=== PATIENT | female | born 1945 | race Hispanic/Latino ===

== ENCOUNTER 2018-10-18 15:00 | Inpatient (IN) | payer OTHER ==
[~2018-10-18] VITALS: Ht 157.5 cm; Wt 75.0 kg
[~2018-10-18 15:00] MED LIST: LOSA1TAB42 PO; PREM125 PO
[2018-10-18] MEDS ORDERED: SOLI10TA PO (16:09)
[2018-10-18 16:21] LABS: BASOPHILS % (AUTO) 0.5 % (0.0-5.0); EOSINOPHILS % (AUTO) 0.6 % (0.0-8.0); HEMATOCRIT 38.8 % (36-48); LYMPHOCYTES % (AUTO) 27.1 % (21.0-51.0); MEAN CORPUSCULAR HEMOGLOBIN 32.2 pg (27.0-33.0); MEAN CORPUSCULAR VOLUME 94.6 fL (79-99); MONOCYTES % (AUTO) 8.2 % (3.0-13.0); NEUTROPHILS % (AUTO) 63.6 % (40.0-77.0); NUCLEATED RED BLOOD CELLS 0.1 % (0.0-0.19); PLATELET COUNT (AUTO) 247 K/uL (130-400); RED CELL DISTRIBUTION WIDTH 13.4 % (11.0-15.5); WHITE BLOOD COUNT (AUTO) 7.8 K/uL (4.8-10.8)
[2018-10-18 16:33] LABS: CREATININE 0.9 mg/dL (0.5-1.5); POTASSIUM 4.1 mmol/L (3.5-5.1)
[2018-10-18 16:34] LABS: INR 0.95 (0.85-1.15)
[2018-10-18 16:39] LABS: APPEARANCE,URINE Clear (CLEAR); BILIRUBIN,URINE Negative (NEGATIVE); COLOR,URINE Yellow (YELLOW); GLUCOSE, URINE (UA) Negative (NEGATIVE); KETONES,URINE Negative (NEGATIVE); LEUKOCYTE ESTERASE ,URINE Negative (NEGATIVE); NITRATE,URINE Negative (NEGATIVE); OCCULT BLOOD,URINE Negative (NEGATIVE); PROTEIN,URINE Negative (NEGATIVE)
[2018-10-19] VITALS (24 sets, daily range): BP systolic 91–155; BP diastolic 48–96
[2018-10-19] MEDS ORDERED: CEFAZOLIN SODIUM 1 GM VIAL ONE (07:37)
[2018-10-19] MEDS ORDERED: CEFAZOLIN SODIUM 1 GM VIAL IVP ONE (08:00)
[2018-10-19] MEDS ORDERED: LACTATED RINGERS 1000ML 1,000 ML IV ONE (08:00)
--- NOTE | 2018-10-19 08:10 | NUR ---
POTENTIAL FOR INFECTION: NO SHAVING NEEDED TO RIGHT SHOULDER / ARM ASSESSED PER PEGGY SCHAFER. WIPED RIGHT SHOULDER / UPPER ARM WITH TRICIA: 2% CHLORHEXIDINE GLUCONATE CLOTH PATIENTS PRE-OP SKIN PREP PER PEGGY SCHAFER.
[2018-10-19] MEDS ORDERED: PROPOFOL 10 MG/ML 20ML VIAL IV ONE (08:28)
[2018-10-19] MEDS ORDERED: MIDAZOLAM HCL 1 MG/ML 2ML VIAL ONE (08:28)
[2018-10-19] MEDS ORDERED: FENTANYL CITRATE PF 50 MCG/1 ML 5ML AMP IV ONE (08:29)
[2018-10-19] MEDS ORDERED: ROCURONIUM 10MG/1ML SYR 10 MG/ML ML ONE (08:31)
[2018-10-19] MEDS ORDERED: ROPIVACAINE 0.5% 5MG/ML 30ML IJ ONE (08:34)
[2018-10-19] MEDS ORDERED: TRANEXAMIC ACID 1000MG/10ML IV ONE ×2 (08:36→12:13)
[2018-10-19] MEDS ORDERED: EPHEDRINE SULFATE 50 MG/ML AMPULE ONE (08:38)
[2018-10-19] MEDS ORDERED: LIDOCAINE HCL-MPF 1% 5ML AMP IJ ONE (09:39)
[2018-10-19] MEDS ORDERED: KETOROLAC TROMETHAMINE 30MG/ML ONE (09:39)
[2018-10-19] MEDS ORDERED: DEXAMETHASONE SOD PHOSPHATE 10MG/ML 1ML VIAL ONE (09:40)
[2018-10-19] MEDS ORDERED: ONDANSETRON HCL 4 MG/2 ML VIAL ONE (09:40)
[2018-10-19] MEDS ORDERED: GLYCOPYRROLATE 1 MG/5 ML SYRINGE ONE (11:29)
[2018-10-19] MEDS ORDERED: NEOSTIGMINE 5MG/5ML SYR IV ONE (11:29)
[2018-10-19] MEDS ORDERED: FENTANYL CITRATE PF 50 MCG/1 ML 2ML VIAL ONE (11:29)
[2018-10-19] MEDS ORDERED: LIDOCAINE HCL-MPF 1% 2ML VIAL IV PRN (12:00)
[2018-10-19] MEDS ORDERED: KETOROLAC TROMETHAMINE 15MG/ML IV PRN (12:00)
[2018-10-19] MEDS ORDERED: CALCIUM CARBONATE 500 MG TABLET PO PRN (12:00)
[2018-10-19] MEDS ORDERED: POTASSIUM CHLORIDE 20 MEQ ERTAB PO PRN (12:00)
[2018-10-19] MEDS ORDERED: OXYCODONE HCL 5 MG TAB PO PRN (12:00)
[2018-10-19] MEDS ORDERED: TEMAZEPAM 15 MG CAPSULE PO PRN (12:00)
[2018-10-19] MEDS ORDERED: POTASSIUM CHLORIDE 10% ELIXIR 20 MEQ/15 ML UDCUP PO PRN (12:00)
[2018-10-19] MEDS ORDERED: FE FUMARATE/FA/MV, MIN COMB#15 1 TAB PO PRN (12:00)
[2018-10-19] MEDS ORDERED: POTASSIUM CHLORIDE 20MEQ/100ML 100 ML IV PRN (12:00)
[2018-10-19] MEDS ORDERED: DiphenhydrAMINE HCL 50 MG/ML VIAL IVP PRN (12:00)
[2018-10-19] MEDS ORDERED: ONDANSETRON HCL 4 MG/2 ML VIAL IVP PRN (12:00)
[2018-10-19] MEDS: ACETAMINOPHEN EXTRA STRENGTH 500 MG TABLET PO SCH ×2 (12:00→19:59)
[2018-10-19] MEDS ORDERED: TRAMADOL HCL 50 MG TABLET PO PRN (12:00)
[2018-10-19] MEDS: SODIUM CHLORIDE 0.9% 1000ML 1,000 ML IV SCH ×2 (13:15→20:07)
[2018-10-19] MEDS: CEFAZOLIN SODIUM 1 GM VIAL IVP SCH (17:00)
--- NOTE | 2018-10-19 17:00 | NUR ---
CARI MET W PATIENT S/P TOTOAL SHOULDER, LIVES ALONE BUT DAUGHTER WILL BE STAING WITH HER . HAS TRANSPORT HOME FROM ANOTHER DAUGHTER LISTED ON FACE SHEET [place]. NO STAIRS IN HOME, NO PROBLEMS WITH AMBULATION, NO DME, INDP OF ADLS, [facility] AND CLARIFIED HH AGENCY WITH DR. GUIDRY DCP IS HOME WITH [facility] Addendum: 10/21/18 at 1834 by ENRIQUE QIU RN CM Amended: Links added.
[2018-10-19] MEDS: ASPIRIN 325 MG TABLET PO SCH (19:57)
[2018-10-19] MEDS: PREGABALIN 25 MG CAP PO SCH (19:58)
[2018-10-19] MEDS: FAMOTIDINE 20MG TAB 20 MG TAB PO SCH (19:59)
[2018-10-19] MEDS: CELECOXIB 200 MG CAP PO SCH (19:59)
[2018-10-20] MEDS: CEFAZOLIN SODIUM 1 GM VIAL IVP SCH (00:36)
[2018-10-20 04:00] VITALS: BP 115/66
[2018-10-20] MEDS: ACETAMINOPHEN EXTRA STRENGTH 500 MG TABLET PO SCH ×3 (05:02→20:38)
[2018-10-20] MEDS: SODIUM CHLORIDE 0.9% 1000ML 1,000 ML IV SCH (05:02)
[2018-10-20 05:33] LABS: HEMATOCRIT 29.4 % (36-48); MEAN CORPUSCULAR HEMOGLOBIN 31.9 pg (27.0-33.0); MEAN CORPUSCULAR HGB CONC 34.1 g/dL (32.0-36.0); MEAN CORPUSCULAR VOLUME 93.6 fL (79-99); PLATELET COUNT (AUTO) 203 K/uL (130-400); RED BLOOD CELL COUNT(AUTO) 3.14 MIL/uL (4.00-5.50); RED CELL DISTRIBUTION WIDTH 13.4 % (11.0-15.5); WHITE BLOOD COUNT (AUTO) 11.4 K/uL (4.8-10.8)
[2018-10-20 06:00] LABS: POTASSIUM 4.2 mmol/L (3.5-5.1)
[2018-10-20 08:00] VITALS: BP 132/67
[2018-10-20] MEDS: PREGABALIN 25 MG CAP PO SCH ×2 (08:51→20:38)
[2018-10-20] MEDS: POLYETHYLENE GLYCOL 3350 17 GM POWD.PACK PO SCH (08:51)
[2018-10-20] MEDS: ASPIRIN 325 MG TABLET PO SCH ×2 (08:51→20:37)
[2018-10-20] MEDS: CELECOXIB 200 MG CAP PO SCH ×2 (08:52→20:38)
[2018-10-20] MEDS: LOSARTAN 100 MG TABLET PO SCH ×2 (08:52→09:00)
[2018-10-20] MEDS: FAMOTIDINE 20MG TAB 20 MG TAB PO SCH ×2 (08:52→20:37)
[2018-10-20] MEDS: OXYCODONE HCL 5 MG TAB PO PRN ×2 (08:53→20:39)
[2018-10-20] MEDS: ESTROGENS,CONJUGATED 0.625 MG TAB PO SCH (08:53)
[2018-10-20] MEDS: **HM** VESICARE 10MG PO SCH ×2 (08:56→09:00)
[2018-10-20] MEDS: HYDROCHLOROTHIAZIDE 25 MG TABLET PO SCH (09:00)
--- NOTE | 2018-10-20 11:00 | NUR ---
ACCEPTED AT [facility], CHART TAGGED Addendum: 10/21/18 at 1839 by ENRIQUE QIU RN CM Amended: Links added.
[2018-10-20 12:00] VITALS: BP 111/70
[2018-10-20 16:00] VITALS: BP 127/71
[2018-10-20 19:00] VITALS: BP 127/69
[2018-10-21] VITALS: BP 104/58
[2018-10-21 04:00] VITALS: BP 143/77
[2018-10-21] MEDS: ACETAMINOPHEN EXTRA STRENGTH 500 MG TABLET PO SCH ×2 (05:32→12:59)
[2018-10-21 07:39] VITALS: BP 131/79
[2018-10-21] MEDS: **HM** VESICARE 10MG PO SCH (09:00)
[2018-10-21] MEDS: HYDROCHLOROTHIAZIDE 25 MG TABLET PO SCH (11:09)
[2018-10-21] MEDS: LOSARTAN 100 MG TABLET PO SCH (11:09)
[2018-10-21] MEDS: ESTROGENS,CONJUGATED 0.625 MG TAB PO SCH (11:10)
[2018-10-21] MEDS: PREGABALIN 25 MG CAP PO SCH (11:10)
[2018-10-21] MEDS: CELECOXIB 200 MG CAP PO SCH (11:10)
[2018-10-21] MEDS: ASPIRIN 325 MG TABLET PO SCH (11:11)
[2018-10-21] MEDS: FAMOTIDINE 20MG TAB 20 MG TAB PO SCH (11:11)
[2018-10-21] MEDS: POLYETHYLENE GLYCOL 3350 17 GM POWD.PACK PO SCH (11:16)
[2018-10-21 11:38] VITALS: BP 155/92
[2018-10-21] MEDS ORDERED: HYDR-4457 PO (12:09)
--- NOTE | 2018-10-21 12:45 | NUR ---
DRESSING CHANGE/HV DC EXPLAIN PROCEDURE TO PT. REMOVED DRESSING, INCISION TO ANTERIOR SHOULDER CLEAN AND DRY, NO REDNESS OR OOZING TO SITE, SWELLING NOTED TO SHOULDER AREA, CLEANSED INCISION WITH NORMAL SALINE AND BETADINE, COVERED WITH GAUZE AND HYPAFIX TAPE, ALSO REMOVED HV DRAIN WITH EASE, APPROX. 40 ML IN HV. NO REDNESS OR DRAINAGE TO SITE, CLEANSED AREA WITH NORMAL SALIN AND COVERED WITH GAUZE AND HYPAFIX TAPE, PROCEDURE TOLERATED WELL.
[2018-10-22] MEDS ORDERED: BISACODYL 10 MG SUPP.RECT RC PRN (12:00)
== END 2018-10-21 14:25 | disposition home health service (06) | DRG 483 ==
LOC: EDSTATUS 15:30 → DAHIP 10-19 06:58 → 4AH 10-19 12:55
PROVIDERS: ADMIT Orthopaedic Surgery; ATTEND Orthopaedic Surgery
PROC: 0RRJ00Z Replacement of Right Shoulder Joint with Reverse Ball and Socket Synthetic Substitute, Open Approach (ICD-10-PCS; principal; 2018-10-19 09:28)
PROC: 3E0T3BZ Introduction of Anesthetic Agent into Peripheral Nerves and Plexi, Percutaneous Approach (ICD-10-PCS; 2018-10-19 09:28)
DX: M75.101 Unspecified rotator cuff tear or rupture of right shoulder, not specified as traumatic (principal); M25.311 Other instability, right shoulder; N18.3 Chronic kidney disease, stage 3 (moderate); I12.9 Hypertensive chronic kidney disease with stage 1 through stage 4 chronic kidney disease, or unspecified chronic kidney disease; M12.811 Other specific arthropathies, not elsewhere classified, right shoulder; Z90.710 Acquired absence of both cervix and uterus; Z83.3 Family history of diabetes mellitus; Z82.49 Family history of ischemic heart disease and other diseases of the circulatory system
CPT/HCPCS: 36415; 73020; 80048; 81003; 85025; 85027; 85610; 87641; 88304; 88311; 93005; A4565; A4606; G0378; J0690; J1100; J1885; J2250; J2405; J2704; J2710; J2795; J3010; J3490; J7030; J7120

== ENCOUNTER 2020-04-16 13:03 | Emergency (ER) | payer OTHER, MEDICARE ==
[~2020-04-16 13:03] MED LIST changes: +HYDR-4457 PO; +SOLI10TA PO
[2020-04-16 13:43] LABS: BASOPHILS % (AUTO) 0.1 % (0.0-5.0); HEMATOCRIT 48.6 % (36-48); LYMPHOCYTES % (AUTO) 7.4 % (21.0-51.0); MEAN CORPUSCULAR HEMOGLOBIN 29.7 pg (27.0-33.0); MEAN CORPUSCULAR HGB CONC 33.7 g/dL (32.0-36.0); MEAN CORPUSCULAR VOLUME 87.9 fL (79-99); MONOCYTES % (AUTO) 4.1 % (3.0-13.0); NEUTROPHILS % (AUTO) 88.1 % (40.0-77.0); PLATELET COUNT (AUTO) 238 K/uL (130-400); RED BLOOD CELL COUNT(AUTO) 5.53 MIL/uL (4.00-5.50); RED CELL DISTRIBUTION WIDTH 12.9 % (11.0-15.5); WHITE BLOOD COUNT (AUTO) 10.9 K/uL (4.8-10.8)
[2020-04-16 14:09] LABS: INR 0.99 (0.85-1.15); PROTHROMBIN TIME 10.8 SEC (9.6-11.6)
[2020-04-16 14:10] LABS: PARTIAL THROMBOPLASTIN TIME 24.7 SEC (26.3-35.5)
[2020-04-16 14:49] LABS: ALANINE AMINOTRANSFERASE 29 U/L (12-78); ALBUMIN 3.3 g/dL (3.5-5.0); ASPARTATE AMINOTRANSFERASE 34 U/L (10-37); BILIRUBIN,TOTAL 0.8 mg/dL (0.2-1.0); CARBON DIOXIDE 23 mmol/L (21-32); CHLORIDE 103 mmol/L (101-111); CREATINE KINASE, TOTAL 94 U/L (21-232); GLOMERULAR FILTR. RATE CALC 57 mL/min (>60); GLUCOSE,RANDOM 106 mg/dL (70-105); MYOGLOBIN 73 ng/mL (10-92); POTASSIUM 3.6 mmol/L (3.5-5.1); SODIUM SERUM 136 mmol/L (136-145); TOTAL PROTEIN, SERUM 7.6 g/dL (6.0-8.3); TROPONIN I < 0.04 ng/mL (0.00-0.06); UREA NITROGEN, BLOOD 29 mg/dL (7-18)
[2020-04-16] MEDS ORDERED: 0.9%NACL 1000ML 1,000 ML IV ONE (14:57)
[2020-04-16] MEDS ORDERED: ZOSYN 3.375GM+NS 50ML 50 ML IV ONE (14:58)
[2020-04-16 17:58] LABS: APPEARANCE,URINE Clear (CLEAR); BILIRUBIN,URINE Negative (NEGATIVE); COLOR,URINE Yellow (YELLOW); GLUCOSE, URINE (UA) Negative (NEGATIVE); KETONES,URINE Negative (NEGATIVE); LEUKOCYTE ESTERASE ,URINE Negative (NEGATIVE); NITRATE,URINE Negative (NEGATIVE); OCCULT BLOOD,URINE Negative (NEGATIVE); PROTEIN,URINE POS 1+ mg/dL (NEGATIVE); UROBILINOGEN,URINE 0.2 mg/dL (0.2-1.0)
[2020-04-16 18:18] LABS: BACTERIA,URINE Few /HPF (None Seen); MUCUS,URINE Few LPF (None Seen); SQUAMOUS EPITHELIAL CELL,UR Moderate /HPF (0-2)
== END 2020-04-16 18:41 | disposition home or self-care (01) ==
LOC: EDH 13:03
DX: A09 Infectious gastroenteritis and colitis, unspecified (principal); E86.0 Dehydration; Z20.822 Contact with and (suspected) exposure to COVID-19; I10 Essential (primary) hypertension; Z90.49 Acquired absence of other specified parts of digestive tract; Z90.710 Acquired absence of both cervix and uterus
CPT/HCPCS: 36415; 71045; 74176; 80053; 81001; 82550; 83605 ×2; 83874; 84145; 84484; 85025; 85610; 85730; 86900; 86901; 87040 ×2; 87088; 87426; 96365; 96366; 99285; J2543; J7030; 93005

== ENCOUNTER 2020-09-09 16:04 | Inpatient (IN) | payer OTHER, MEDICARE ==
[~2020-09-09] VITALS: Ht 160 cm; Wt 72.4 kg
[2020-09-09 16:27] LABS: BASOPHILS % (AUTO) 0.5 % (0.0-5.0); EOSINOPHILS % (AUTO) 0.6 % (0.0-8.0); HEMATOCRIT 44.9 % (36-48); LYMPHOCYTES % (AUTO) 27.1 % (21.0-51.0); MEAN CORPUSCULAR HEMOGLOBIN 30.5 pg (27.0-33.0); MEAN CORPUSCULAR HGB CONC 33.2 g/dL (32.0-36.0); MONOCYTES % (AUTO) 6.8 % (3.0-13.0); NEUTROPHILS % (AUTO) 64.5 % (40.0-77.0); PLATELET COUNT (AUTO) 221 K/uL (130-400); RED BLOOD CELL COUNT(AUTO) 4.88 MIL/uL (4.00-5.50); RED CELL DISTRIBUTION WIDTH 12.6 % (11.0-15.5); WHITE BLOOD COUNT (AUTO) 9.6 K/uL (4.8-10.8)
[2020-09-09 16:42] LABS: POTASSIUM 4.1 mmol/L (3.5-5.1)
[2020-09-09 16:49] LABS: ALBUMIN 3.8 g/dL (3.5-5.0); B-TYPE NATRIURETIC PEPTIDE 59 pg/mL (0-100); BILIRUBIN,TOTAL 0.7 mg/dL (0.2-1.0); TOTAL PROTEIN, SERUM 7.7 g/dL (6.0-8.3)
[2020-09-09 17:13] VITALS: BP 150/83
[2020-09-09] MEDS ORDERED: 0.9%NACL 1000ML 1,000 ML IV ONE (17:30)
[2020-09-09] MEDS ORDERED: CEFTRIAXONE 1G VIAL IVP ONE (17:30)
[2020-09-09 18:30] VITALS: BP 148/90
[2020-09-09] MEDS ORDERED: 0.9% NACL 500ML IV.SOLN 500 ML IV ONE (18:34)
[2020-09-09 20:54] LABS: INR 0.99 (0.85-1.15); PROTHROMBIN TIME 10.8 SEC (9.6-11.6)
[2020-09-09 21:00] LABS: CREATINE KINASE, TOTAL 59 U/L (21-232); MYOGLOBIN 51 ng/mL (10-92); TROPONIN I < 0.04 ng/mL (0.00-0.06)
[2020-09-09] MEDS ORDERED: LABETALOL 20MG SYG IV ONE ×2 (21:54→22:00)
[2020-09-09] MEDS ORDERED: ONDANSETRON 4MG INJ IV PRN (22:00)
[2020-09-09] MEDS ORDERED: NITROGLYCERIN 0.4 MG SL TAB SL PRN (22:00)
[2020-09-09] MEDS ORDERED: ACETAMINOPHEN 325 MG TAB PO PRN ×2 (22:00)
[2020-09-09] MEDS ORDERED: LABETALOL 20MG SYG IV PRN (22:30)
[2020-09-09 23:00] VITALS: BP 182/91
[2020-09-09] MEDS: ASPIRIN 81 MG EC TAB PO SCH (23:07)
[2020-09-10] VITALS (7 sets, daily range): BP systolic 131–186; BP diastolic 50–90
[2020-09-10] MEDS ORDERED: IBUP-1673 PO (00:35)
[2020-09-10] MEDS ORDERED: HYDR100T27 PO (00:35)
[2020-09-10 05:04] LABS: BASOPHILS % (AUTO) 0.5 % (0.0-5.0); EOSINOPHILS % (AUTO) 1.9 % (0.0-8.0); HEMATOCRIT 39.2 % (36-48); LYMPHOCYTES % (AUTO) 27.9 % (21.0-51.0); MEAN CORPUSCULAR HGB CONC 32.7 g/dL (32.0-36.0); MEAN CORPUSCULAR VOLUME 91.8 fL (79-99); MONOCYTES % (AUTO) 8.8 % (3.0-13.0); NEUTROPHILS % (AUTO) 60.5 % (40.0-77.0); PLATELET COUNT (AUTO) 177 K/uL (130-400); RED BLOOD CELL COUNT(AUTO) 4.27 MIL/uL (4.00-5.50); RED CELL DISTRIBUTION WIDTH 12.6 % (11.0-15.5); WHITE BLOOD COUNT (AUTO) 8.1 K/uL (4.8-10.8)
[2020-09-10 05:36] LABS: ALANINE AMINOTRANSFERASE 16 U/L (12-78); ALBUMIN 2.7 g/dL (3.5-5.0); ASPARTATE AMINOTRANSFERASE 15 U/L (10-37); BILIRUBIN,TOTAL 0.8 mg/dL (0.2-1.0); CARBON DIOXIDE 26 mmol/L (21-32); CHLORIDE 106 mmol/L (101-111); CHOLESTEROL 147 mg/dL (<200); CREATINE KINASE, TOTAL 45 U/L (21-232); CREATININE 0.9 mg/dL (0.5-1.5); GLOMERULAR FILTR. RATE CALC 65 mL/min (>60); GLUCOSE,RANDOM 115 mg/dL (70-105); HDL CHOLESTEROL 58 mg/dL (35-85); LDL DIRECT 74 mg/dL (0-99); MYOGLOBIN 45 ng/mL (10-92); SODIUM SERUM 139 mmol/L (136-145); TOTAL PROTEIN, SERUM 5.9 g/dL (6.0-8.3); TRIGLYCERIDES 91 mg/dL (30-200); TROPONIN I < 0.04 ng/mL (0.00-0.06); UREA NITROGEN, BLOOD 21 mg/dL (7-18)
[2020-09-10] MEDS: ESTROGENS,CONJUGATED 0.625 MG TAB PO SCH (08:54)
[2020-09-10] MEDS: OXYBUTYNIN CHLORIDE 5 MG TABLET PO SCH ×3 (08:56→20:11)
[2020-09-10] MEDS: HYDRALAZINE 25MG TABLET PO SCH ×3 (08:56→22:05)
[2020-09-10] MEDS: ASPIRIN 81 MG EC TAB PO SCH (08:57)
[2020-09-10] MEDS: FAMOTIDINE 20MG TAB PO SCH (08:57)
[2020-09-10] MEDS: ENOXAPARIN SODIUM 30 MG/0.3 ML SQ SCH (08:58)
[2020-09-10] MEDS ORDERED: LOSARTAN/HYDROCHLOROTHIAZIDE 50-12.5MG TABLET PO SCH (09:00)
[2020-09-10] MEDS ORDERED: LOSARTAN 50 MG TABLET PO SCH (09:00)
[2020-09-11] VITALS (23 sets, daily range): BP systolic 89–165; BP diastolic 35–95
[2020-09-11] MEDS: ENOXAPARIN SODIUM 30 MG/0.3 ML SQ SCH (09:00)
[2020-09-11] MEDS: LOSARTAN/HYDROCHLOROTHIAZIDE 50-12.5MG TABLET PO SCH (09:48)
[2020-09-11] MEDS: OXYBUTYNIN CHLORIDE 5 MG TABLET PO SCH ×3 (09:49→20:30)
[2020-09-11] MEDS: ASPIRIN 81 MG EC TAB PO SCH (09:49)
[2020-09-11] MEDS: ESTROGENS,CONJUGATED 0.625 MG TAB PO SCH (09:49)
[2020-09-11] MEDS: HYDRALAZINE 25MG TABLET PO SCH ×3 (09:49→20:30)
[2020-09-11] MEDS: FAMOTIDINE 20MG TAB PO SCH (09:49)
[2020-09-11] MEDS ORDERED: PROPOFOL 10 MG/ML 20ML VIAL IV ONE (11:22)
[2020-09-11] MEDS ORDERED: LIDOCAINE HCL 1% 20 ML VIAL ONE (11:22)
[2020-09-12] VITALS (18 sets, daily range): BP systolic 96–156; BP diastolic 50–77
[2020-09-12] MEDS: LOSARTAN/HYDROCHLOROTHIAZIDE 50-12.5MG TABLET PO SCH (09:40)
[2020-09-12] MEDS: ENOXAPARIN SODIUM 30 MG/0.3 ML SQ SCH (09:40)
[2020-09-12] MEDS: FAMOTIDINE 20MG TAB PO SCH (09:40)
[2020-09-12] MEDS: OXYBUTYNIN CHLORIDE 5 MG TABLET PO SCH ×3 (09:40→22:08)
[2020-09-12] MEDS: HYDRALAZINE 25MG TABLET PO SCH ×3 (09:41→22:08)
[2020-09-12] MEDS: ESTROGENS,CONJUGATED 0.625 MG TAB PO SCH (09:41)
[2020-09-12] MEDS: ASPIRIN 81 MG EC TAB PO SCH (09:41)
[2020-09-12] MEDS: PANTOPRAZOLE 40 MG TAB DR PO SCH (09:43)
[2020-09-12] MEDS ORDERED: 0.9%NACL 1000ML 1,000 ML IV ONE (11:34)
[2020-09-12] MEDS ORDERED: AEC81 PO (16:08)
[2020-09-12] MEDS ORDERED: LOSA1TAB2 PO (16:08)
[2020-09-12] MEDS ORDERED: PANT40TA PO (16:08)
[2020-09-12 18:13] LABS: CREATINE KINASE, TOTAL 39 U/L (21-232); MYOGLOBIN 43 ng/mL (10-92)
[2020-09-13 04:40] VITALS: BP 136/79
[2020-09-13] MEDS ORDERED: HYDR100T27 PO (06:57)
[2020-09-13 07:30] VITALS: BP 140/82
[2020-09-13] MEDS: LOSARTAN/HYDROCHLOROTHIAZIDE 50-12.5MG TABLET PO SCH (08:42)
[2020-09-13] MEDS: HYDRALAZINE 25MG TABLET PO SCH (08:42)
[2020-09-13] MEDS: ASPIRIN 81 MG EC TAB PO SCH (08:42)
[2020-09-13] MEDS: FAMOTIDINE 20MG TAB PO SCH (08:43)
[2020-09-13] MEDS: OXYBUTYNIN CHLORIDE 5 MG TABLET PO SCH (08:43)
[2020-09-13] MEDS: PANTOPRAZOLE 40 MG TAB DR PO SCH (08:43)
[2020-09-13] MEDS: ENOXAPARIN SODIUM 30 MG/0.3 ML SQ SCH (08:44)
== END 2020-09-13 11:10 | disposition home or self-care (01) | DRG 304 ==
LOC: EDH 16:04 → EDHIP 20:10 → 3AH 22:46
PROVIDERS: ADMIT Internal Medicine; ATTEND Internal Medicine
PROC: 0DB58ZX Excision of Esophagus, Via Natural or Artificial Opening Endoscopic, Diagnostic (ICD-10-PCS; principal; 2020-09-11)
PROC: 0DB68ZX Excision of Stomach, Via Natural or Artificial Opening Endoscopic, Diagnostic (ICD-10-PCS; 2020-09-11)
PROC: 0DJ08ZZ Inspection of Upper Intestinal Tract, Via Natural or Artificial Opening Endoscopic (ICD-10-PCS; 2020-09-12)
DX: I16.0 Hypertensive urgency (principal); J98.59 Other diseases of mediastinum, not elsewhere classified; I31.3 Pericardial effusion (noninflammatory); K29.00 Acute gastritis without bleeding; K21.00 Gastro-esophageal reflux disease with esophagitis, without bleeding; I12.9 Hypertensive chronic kidney disease with stage 1 through stage 4 chronic kidney disease, or unspecified chronic kidney disease; I34.0 Nonrheumatic mitral (valve) insufficiency; N18.31 Chronic kidney disease, stage 3a; R93.89 Abnormal findings on diagnostic imaging of other specified body structures; R93.3 Abnormal findings on diagnostic imaging of other parts of digestive tract; Z20.822 Contact with and (suspected) exposure to COVID-19; Z90.49 Acquired absence of other specified parts of digestive tract; Z90.710 Acquired absence of both cervix and uterus; Z83.3 Family history of diabetes mellitus; Z82.49 Family history of ischemic heart disease and other diseases of the circulatory system
CPT/HCPCS: 36415; 43237; 43239; 70450; 71045; 71260; 80053; 80061; 82550; 83735; 83874; 83880; 84484; 85025; 85378; 85610; 85730; 86677; 87635; 87804; 93005; 93306; 93356; A4606; C9803; G0378; J1650; J2704; J7030; J7040

== ENCOUNTER 2021-10-27 13:59 | Emergency (ER) | payer OTHER, MEDICARE ==
[~2021-10-27] VITALS: Ht 160 cm; Wt 73.9 kg
[~2021-10-27 13:59] MED LIST changes: +AEC81 PO; -HYDR-4457 PO; +HYDR100T27 PO; +IBUP-1673 PO; +LOSA-422 PO; -LOSA1TAB42 PO; +PANT40TA PO
[2021-10-27 14:00] VITALS: BP_DIAS 109
[2021-10-27 14:04] VITALS: BP_SYST 189
[2021-10-27] MEDS ORDERED: KETOROLAC 60 MG VIAL (30MG/ML) IM ONE (15:00)
[2021-10-27] MEDS ORDERED: CYCL10TA16 PO (16:09)
[2021-10-27] MEDS ORDERED: TRAM1TAB2 PO (16:15)
== END 2021-10-27 16:28 | disposition home or self-care (01) ==
LOC: EDH 13:59
DX: S40.011A Contusion of right shoulder, initial encounter (principal); S00.83XA Contusion of other part of head, initial encounter; I10 Essential (primary) hypertension; Z79.1 Long term (current) use of non-steroidal anti-inflammatories (NSAID); Z79.82 Long term (current) use of aspirin; Z79.899 Other long term (current) drug therapy; Z90.49 Acquired absence of other specified parts of digestive tract; W01.0XXA Fall on same level from slipping, tripping and stumbling without subsequent striking against object, initial encounter; Y93.89 Activity, other specified; Y92.89 Other specified places as the place of occurrence of the external cause; Y99.8 Other external cause status
CPT/HCPCS: 99284; 72125; 73030; 70486; 96372; J1885; 29105

== ENCOUNTER → 2022-07-22 | Outpatient (CLI) | payer MEDICARE ==
[~2022-07-22] MED LIST changes: +CYCL10TA16 PO; +TRAM1TAB2 PO
[2022-07-22 17:04] LABS: ALBUMIN 3.8 g/dL (3.5-5.0); CREATININE 0.9 mg/dL (0.5-1.5); POTASSIUM 4.4 mmol/L (3.5-5.1); THYROID STIMULATING HORMONE 1.1 uIU/mL (0.36-3.74); TOTAL PROTEIN, SERUM 7.4 g/dL (6.0-8.3)
[2022-07-22 17:20] LABS: T4 (THYROXINE) 7.5 ug/dL (4.7-13.3)
== END | disposition home or self-care (01) ==
LOC: LAB 12:47
PROVIDERS: ATTEND Internal Medicine Cardiovascular Disease
DX: I10 Essential (primary) hypertension (principal); R06.09 Other forms of dyspnea
CPT/HCPCS: 36415; 80053; 83880; 84436; 84443; 84479